=== PATIENT | female | born 1995 | race African-American/Black ===

== ENCOUNTER 2018-05-30 10:35 | Emergency (ER) | payer OTHER ==
[~2018-05-30] VITALS: Ht 157.5 cm; Wt 57.9 kg
[~2018-05-30 10:35] MED LIST: IBUP-1222 PO; OXYC-302 PO
[2018-05-30] MEDS ORDERED: AMOX1TAB64 PO (11:03)
[2018-05-30] MEDS ORDERED: OMNIPAQUE 350 MG/ML, 100ML BOTTLE ONE (11:31)
[2018-05-30 11:37] LABS: MEAN CORPUSCULAR HEMOGLOBIN 27.1 pg (27.0-34.8); MEAN CORPUSCULAR HGB CONC 32.9 g/dL (32.4-35.8); MEAN CORPUSCULAR VOLUME 82.2 fL (80-100); MEAN PLATELET VOLUME 9.1 fL (7.4-10.4); PLATELET COUNT 202 x10^3/uL (130-400); RED BLOOD COUNT 4.91 x10^6/uL (3.82-5.3); RED CELL DISTRIBUTION WIDTH 13.5 % (9.6-15.2)
[2018-05-30 11:47] LABS: ANION GAP 5 mmol/L (5-15); CALCIUM 8.1 mg/dL (8.5-10.1); CHLORIDE 110 mmol/L (98-107)
[2018-05-30 11:58] LABS: CREATININE 0.67 mg/dL (0.55-1.02); THYROID STIMULATING HORMONE 0.843 mIU/L (0.358-3.740)
[2018-05-30 12:12] LABS: MD YES
[2018-05-30 12:16] LABS: BASOS#(MANUAL) 0.02 x10^3/uL (0-0.1); BASOS% (MANUAL) 1 % (0-1); LYMPHS% (MANUAL) 60 % (22-44); MONOS#(MANUAL) 0.26 x10^3/uL (0.3-2.7); MONOS% (MANUAL) 13 % (2-9); SEG#(MANUAL) 0.52 x10^3/uL (1.8-6.8); SEGS% (MANUAL) 26 % (42-75)
[2018-05-30 12:17] LABS: <PLATELET ESTIMATE> ADEQUATE; <PLT MORPHOLOGY> NORMAL PLT MORPH; <RBC MORPHOLOGY> NORMAL
[2018-05-30 13:07] LABS: ALANINE AMINOTRANSFERASE 21 U/L (12-78); ALBUMIN 3.8 g/dL (3.4-5.0)
[2018-05-30 13:09] LABS: ALKALINE PHOSPHATASE 54 U/L (45-117); BILIRUBIN,TOTAL 0.2 mg/dL (0.2-1.0); TOTAL PROTEIN 7.5 g/dL (6.4-8.2)
[2018-05-30 13:13] LABS: BILIRUBIN, DIRECT < 0.1 mg/dL (0.1-0.2); BILIRUBIN,INDIRECT 0.1 mg/dL (0.0-2.0)
[2018-05-30 13:26] LABS: INTERNATIONAL NORMALIZED RATIO 1.08 (0.93-1.1); PROTHROMBIN TIME 11.1 Seconds (9.6-11.5)
[2018-05-30 16:01] VITALS: BP 110/72
== END 2018-05-30 16:05 | disposition home or self-care (01) ==
LOC: ED 12:15
DX: R53.1 Weakness (principal); M79.1 Myalgia; R51 Headache; R79.1 Abnormal coagulation profile
CPT/HCPCS: 36415; 70450; 71046; 80048; 80076; 83615; 84443; 84550; 85025; 85384; 85610; 85730; 86308; 93005; 99285; Q9967

== ENCOUNTER 2018-06-27 07:10 | Day surgery (SDC) | payer OTHER ==
[~2018-06-27] VITALS: Ht 157.5 cm; Wt 58.0 kg
[~2018-06-27 07:10] MED LIST changes: +AMOX1TAB64 PO
[2018-06-27 08:09] VITALS: BP 105/59
[2018-06-27] MEDS ORDERED: SODIUM CHLORIDE 0.9% 1,000 ML IV SCH (08:10)
[2018-06-27] MEDS ORDERED: LIDOCAINE-MPF 2%, 2ML ONE (08:29)
[2018-06-27] MEDS ORDERED: MIDAZOLAM 1 MG/ML, 5ML ONE (08:33)
[2018-06-27] MEDS ORDERED: FENTANYL PF 100 MCG/2ML ONE (08:33)
[2018-06-27] MEDS ORDERED: NALOXONE 1 MG/ML, 2ML ONE (08:34)
[2018-06-27] MEDS ORDERED: FLUMAZENIL 0.1 MG/1 ML, 5ML ONE (08:34)
[2018-06-27 08:41] LABS: MEAN CORPUSCULAR HEMOGLOBIN 27.1 pg (27.0-34.8); MEAN CORPUSCULAR HGB CONC 33.6 g/dL (32.4-35.8); MEAN CORPUSCULAR VOLUME 80.6 fL (80-100); MEAN PLATELET VOLUME 9.3 fL (7.4-10.4); PLATELET COUNT 212 x10^3/uL (130-400); RED BLOOD COUNT 4.89 x10^6/uL (3.82-5.3); RED CELL DISTRIBUTION WIDTH 13.5 % (9.6-15.2)
[2018-06-27 08:43] LABS: HCG UR SG 1.019 (1.003-1.030)
[2018-06-27 09:25] LABS: BASOPHILS # (AUTO) 0.03 x10^3/uL (0-0.1); BASOPHILS % (AUTO) 1 % (0-1); EOSINOPHILS # (AUTO) 0.05 x10^3/uL (0-0.4); EOSINOPHILS % (AUTO) 2 % (1-7); LYMPHOCYTES # (AUTO) 1.42 x10^3/uL (1-3.4); LYMPHOCYTES % (AUTO) 49 % (22-44); MD SCAN; MONOCYTES # (AUTO) 0.34 x10^3/uL (0.2-0.8); MONOCYTES % (AUTO) 12 % (2-9); NEUTROPHILS # (AUTO) 1.04 x10^3/uL (1.8-6.8); NEUTROPHILS % (AUTO) 36 % (42-75)
== END 2018-06-27 12:05 | disposition home or self-care (01) ==
LOC: OUT 07:10
PROVIDERS: ATTEND Internal Medicine Hematology & Oncology
DX: D72.818 Other decreased white blood cell count (principal); I10 Essential (primary) hypertension; F17.210 Nicotine dependence, cigarettes, uncomplicated
CPT/HCPCS: 36415; 38222; 77012; 81025; 85025; 85060; 85097; 88237; 88264; 88280; 88305; 88311; 88313; 99156; J2250; J3010; J3490; J7030; 99157; J2310

== ENCOUNTER → 2018-10-16 | Outpatient (CLI) | payer OTHER | END | disposition home or self-care (01) | LOC: CFH 10:51 | PROVIDERS: ATTEND Internal Medicine Hematology & Oncology | DX: D72.819 Decreased white blood cell count, unspecified (principal) | CPT/HCPCS: 93306 ==

== ENCOUNTER 2019-11-28 15:25 | Inpatient (IN) | payer MEDICAID, OTHER ==
[~2019-11-28] VITALS: Ht 154.9 cm; Wt 70.9 kg
[2019-11-28] MEDS ORDERED: FENTANYL PF 100 MCG/2ML ONE ×3 (15:53→19:19)
[2019-11-28] MEDS ORDERED: PLEASE ENTER HEIGHT AND WEIGHT MC SCH (16:00)
[2019-11-28] MEDS: LACTATED RINGERS 1,000 ML IV SCH ×4 (16:00→21:30)
[2019-11-28] MEDS: FENTANYL PF 100 MCG/2ML IVPush PRN ×2 (16:01→17:47)
[2019-11-28 16:21] LABS: MICROSCOPIC INDICATED
[2019-11-28 16:23] LABS: AMPHETAMINE SCREEN, URINE Negative (Negative); BARBITURATE SCREEN, URINE Negative (Negative); BENZODIAZEPINE SCREEN, URINE Negative (Negative); CANNABINOID SCREEN, URINE Negative (Negative); COCAINE SCREEN, URINE Negative (Negative); METHADONE SCREEN, URINE Negative (Negative); OPIATE SCREEN, URINE Negative (Negative)
[2019-11-28] MEDS ORDERED: FENTANYL/BUPIV./NS/PF 250 ML EPIDCONT SCH ×2 (17:37→19:54)
[2019-11-28] MEDS ORDERED: OXYTOCIN 30U/ 0.9% NaCL 500ML 500 ML IV PRN (17:37)
[2019-11-28] MEDS ORDERED: OXYTOCIN 30U/ 0.9% NaCL 500ML 500 ML IV ONE (17:37)
[2019-11-28] MEDS ORDERED: AMPICILLIN 2 GM in SODIUM CHLORIDE 0.9% 100 ML IVPB STA (17:49)
[2019-11-28] MEDS ORDERED: OXYTOCIN 30U/ 0.9% NaCL 500ML 500 ML ONE ×2 (17:52→23:40)
[2019-11-28] MEDS ORDERED: NEWBORN KIT ONE (17:52)
[2019-11-28] MEDS ORDERED: MISOPROSTOL 200 MCG TABLET ONE (17:52)
[2019-11-28] MEDS ORDERED: LIDOCAINE 1%, 20ML ONE (17:52)
[2019-11-28] MEDS ORDERED: ONDANSETRON 2MG/ML, 2ML IVPush PRN ×2 (18:00→20:00)
[2019-11-28] MEDS ORDERED: SODIUM CHLORIDE FLUSH 10ML SYR IVF PRN (18:00)
[2019-11-28] MEDS ORDERED: FENTANYL PF 100 MCG/2ML IVPush PRN (18:00)
[2019-11-28] MEDS ORDERED: METOCLOPRAMIDE 5 MG/ML, 2ML IVPush PRN (18:00)
[2019-11-28] MEDS ORDERED: LACTATED RINGERS 1,000 ML IVBOLUS PRN (18:00)
[2019-11-28] MEDS ORDERED: CALCIUM CARBONATE 500 MG TAB.CHEW PO PRN (18:00)
[2019-11-28] MEDS ORDERED: ALUMINUM/MAG/SIMETHICONE 30 ML UDC PO PRN (18:00)
[2019-11-28] MEDS ORDERED: SODIUM CITRATE/CITRIC ACID 30 ML UDC PO PRN (18:00)
[2019-11-28] MEDS ORDERED: FENTANYL PF 500 MCG, BUPIVACAINE/PF 0.5%, 10ML 62.5 ML in SODIUM CHLORIDE 0.9% 177.5 ML IV PRN (18:30)
[2019-11-28 19:13] LABS: BASOPHILS # (AUTO) 0.01 x10^3/uL (0-0.1); BASOPHILS % (AUTO) 0 % (0-1); EOSINOPHILS # (AUTO) 0.01 x10^3/uL (0-0.4); EOSINOPHILS % (AUTO) 0 % (1-7); LYMPHOCYTES # (AUTO) 0.89 x10^3/uL (1-3.4); LYMPHOCYTES % (AUTO) 9 % (22-44); MD NO; MEAN CORPUSCULAR HEMOGLOBIN 26.3 pg (27.0-34.8); MEAN CORPUSCULAR HGB CONC 32.5 g/dL (32.4-35.8); MEAN PLATELET VOLUME 9.9 fL (7.4-10.4); MONOCYTES # (AUTO) 1.13 x10^3/uL (0.2-0.8); MONOCYTES % (AUTO) 12 % (2-9); NEUTROPHILS # (AUTO) 7.79 x10^3/uL (1.8-6.8); NEUTROPHILS % (AUTO) 79 % (42-75); PLATELET COUNT 146 x10^3/uL (130-400); RED BLOOD COUNT 3.86 x10^6/uL (3.82-5.3); RED CELL DISTRIBUTION WIDTH 14.5 % (9.6-15.2)
[2019-11-28] MEDS ORDERED: BUPIVACAINE 0.25% ONE (19:20)
[2019-11-28] MEDS ORDERED: EPHEDRINE 50 MG/ML, 1ML IVPush PRN (20:00)
[2019-11-28] MEDS: D5%-LACTATED RINGERS 1,000 ML IV SCH (20:17)
[2019-11-28] MEDS ORDERED: ACETAMINOPHEN 325 MG TABLET PO PRN (21:00)
[2019-11-28] MEDS: AMPICILLIN 1 GM in SODIUM CHLORIDE 0.9% 50 ML IVPB SCH (21:29)
[2019-11-28] MEDS ORDERED: ACETAMINOPHEN 325 MG TABLET ONE (21:57)
[2019-11-28] MEDS ORDERED: GENTAMICIN PER PHARMACY MC PRN (22:00)
[2019-11-28] MEDS ORDERED: PHARMACOKINETIC MONITORING MC PRN (22:30)
[2019-11-28] MEDS ORDERED: GENTAMICIN 280 MG in SODIUM CHLORIDE 0.9% 100 ML IV SCH (22:30)
[2019-11-28] MEDS ORDERED: PHARMACOKINETIC CONSULTATION MC ONE (22:30)
[2019-11-28] MEDS ORDERED: MEPERIDINE/PF 50 MG/ML ONE (23:40)
[2019-11-29] VITALS (9 sets, daily range): BP systolic 103–132; BP diastolic 61–87
[2019-11-29] MEDS ORDERED: MEPERIDINE/PF 25MG/0.5ML IVPush ONE
[2019-11-29] MEDS ORDERED: ONDANSETRON 2MG/ML, 2ML ONE (01:09)
[2019-11-29] MEDS ORDERED: OXYcodone/APAP 5/325MG TABLET ONE (01:09)
[2019-11-29] MEDS ORDERED: IBUPROFEN 800 MG TABLET ONE (01:09)
[2019-11-29] MEDS: OXYcodone/APAP 5/325MG TABLET PO PRN ×3 (01:16→23:52)
[2019-11-29] MEDS ORDERED: MISOPROSTOL 200 MCG TABLET ONE (01:30)
[2019-11-29] MEDS: D5%-LACTATED RINGERS 1,000 ML IV SCH (01:37)
[2019-11-29] MEDS: LACTATED RINGERS 1,000 ML IV SCH ×4 (01:37→15:56)
[2019-11-29] MEDS ORDERED: TRANEXAMIC ACID 100 MG/ML, 10ML ONE (01:40)
[2019-11-29] MEDS: AMPICILLIN 1 GM in SODIUM CHLORIDE 0.9% 50 ML IVPB SCH (01:54)
[2019-11-29] MEDS ORDERED: TRANEXAMIC ACID 100 MG/ML, 10ML IV ONE (02:00)
[2019-11-29] MEDS ORDERED: METHYLERGONOVINE 0.2 MG/ML IM PRN (02:00)
[2019-11-29] MEDS ORDERED: MISOPROSTOL 200 MCG TABLET PR PRN (02:00)
[2019-11-29] MEDS ORDERED: IBUPROFEN 800 MG TABLET PO PRN (02:30)
[2019-11-29] MEDS ORDERED: AMPICILLIN 1 GM in SODIUM CHLORIDE 0.9% 50 ML IVPB SCH ×2 (06:00→10:00)
[2019-11-29] MEDS: DIPHENHYDRAMINE 25 MG CAPSULE PO PRN ×2 (06:32→14:39)
[2019-11-29 06:36] LABS: MEAN CORPUSCULAR HEMOGLOBIN 26.5 pg (27.0-34.8); MEAN CORPUSCULAR HGB CONC 32.7 g/dL (32.4-35.8); MEAN CORPUSCULAR VOLUME 80.9 fL (80-100); MEAN PLATELET VOLUME 8.7 fL (7.4-10.4); PLATELET COUNT 142 x10^3/uL (130-400); RED BLOOD COUNT 3.78 x10^6/uL (3.82-5.3); RED CELL DISTRIBUTION WIDTH 14.8 % (9.6-15.2)
[2019-11-29 07:25] LABS: BAND#(MANUAL) 3.26 x10^3/uL; BANDS%(MANUAL) 17 % (0-7); MD YES; SEG#(MANUAL) 13.06 x10^3/uL (1.8-6.8); SEGS% (MANUAL) 68 % (42-75)
[2019-11-29 07:26] LABS: <PLATELET ESTIMATE> ADEQUATE; <PLT MORPHOLOGY> NORMAL PLT MORPH; <RBC MORPHOLOGY> NORMAL; LYMPH#(MANUAL) 1.15 x10^3/uL (1-3.4); LYMPHS% (MANUAL) 6 % (22-44); METAMYELOCYTES# (MANUAL) 0.19 x10^3/uL (0-0); METAMYELOCYTES% (MANUAL) 1 % (0-1); MONOS#(MANUAL) 1.54 x10^3/uL (0.3-2.7); MONOS% (MANUAL) 8 % (2-9)
[2019-11-29] MEDS: AMPICILLIN 1 GM in SODIUM CHLORIDE 0.9% 100 ML IVPB SCH ×3 (10:36→19:32)
[2019-11-29] MEDS: IBUPROFEN 600 MG TABLET PO PRN ×2 (14:39→23:52)
[2019-11-29] MEDS ORDERED: GENTAMICIN 280 MG in SODIUM CHLORIDE 0.9% 100 ML IV SCH (22:30)
[2019-11-30] MEDS: LACTATED RINGERS 1,000 ML IV SCH ×2 (01:37→09:05)
[2019-11-30 08:10] VITALS: BP 111/70
== END 2019-11-30 15:00 | disposition home or self-care (01) | DRG 560 ==
LOC: LDOP 15:25 → LDIP 17:41 → 2NW 11-29 01:27
PROVIDERS: ADMIT Obstetrics & Gynecology; ATTEND Obstetrics & Gynecology
PROC: 10E0XZZ Delivery of Products of Conception, External Approach (ICD-10-PCS; principal; 2019-11-28)
PROC: 10907ZC Drainage of Amniotic Fluid, Therapeutic from Products of Conception, Via Natural or Artificial Opening (ICD-10-PCS; 2019-11-28)
PROC: 3E0R3BZ Introduction of Anesthetic Agent into Spinal Canal, Percutaneous Approach (ICD-10-PCS; 2019-11-28)
PROC: 00HU33Z Insertion of Infusion Device into Spinal Canal, Percutaneous Approach (ICD-10-PCS; 2019-11-28)
DX: O77.0 Labor and delivery complicated by meconium in amniotic fluid (principal); Z37.0 Single live birth; Z3A.37 37 weeks gestation of pregnancy
CPT/HCPCS: 36415; 80307; 81001; 82565; 82803; 84520; 85025; 86592; 86762; 86803; 86850; 86900; 87086; 87340; 87806; G0378; J0290; J2175; J2405; J3010; G0475; J1580; J2210; J2590; J7120; J7121; Q0163